=== PATIENT | male | born 1990 | race Caucasian/White ===

== ENCOUNTER 2021-11-07 23:26 | Emergency (ER) | payer MEDICARE, OTHER ==
[2021-11-07 23:58] LABS: HEMOGLOBIN 11.2 gm/dl (14.0-17.5); RED BLOOD COUNT 5.87 M/UL (4.20-5.50); WHITE BLOOD COUNT 17.5 K/UL (4.5-11.0)
[2021-11-08 00:18] LABS: BUN/CREATININE RATIO 13 (0-10)
== END 2021-11-08 03:27 | disposition home or self-care (01) ==
LOC: ER1 23:26
PROVIDERS: Emergency Medicine
DX: N39.0 Urinary tract infection, site not specified (principal); Z20.822 Contact with and (suspected) exposure to COVID-19
CPT/HCPCS: 71045; 80048; 81001; 82962; 83605; 85025; 87040; 87077; 87081; 87086; 87186; 87880; 93005; 96374; 96375; 99284; J0696; J2405; U0002